=== PATIENT | female | born 1995 | race Caucasian/White ===

== ENCOUNTER 2021-04-26 10:22 | Emergency (ER) | payer OTHER ==
[2021-04-26] MEDS ORDERED: IBUPROFEN600 MG PO (11:31)
== END 2021-04-26 11:40 | disposition home or self-care (01) ==
LOC: ER1 10:22
DX: S63.91XA Sprain of unspecified part of right wrist and hand, initial encounter (principal); W17.89XA Other fall from one level to another, initial encounter
CPT/HCPCS: 73060; 73080; 73090; 73130; 84703; 99283